=== PATIENT | male | born 1950 | race Caucasian/White ===

== ENCOUNTER 2020-10-09 11:23 | Inpatient (IN) | payer OTHER ==
[~2020-10-09] VITALS: Ht 172.7 cm; Wt 127.2 kg
[2020-10-09 11:51] LABS: BASOPHILS % (AUTO) 2 % (0-1); EOSINOPHILS % (AUTO) 2 % (1-7); LYMPHOCYTES % (AUTO) 31 % (22-44); MEAN CORPUSCULAR HEMOGLOBIN 30.2 pg (27.5-34.5); MEAN CORPUSCULAR HGB CONC 33.4 g/dL (33.2-36.2); MEAN PLATELET VOLUME 8.4 fL (7.4-10.4); MONOCYTES % (AUTO) 6 % (2-9); NEUTROPHILS % (AUTO) 60 % (42-75); PLATELET COUNT 156 x10^3/uL (130-400); RED BLOOD COUNT 5.77 x10^6/uL (4.38-5.82); RED CELL DISTRIBUTION WIDTH 17.5 % (9.4-14.8)
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
[2020-10-09 12:06] LABS: ALBUMIN 3.2 g/dL (3.4-5.0); ANION GAP 9 mmol/L (5-15); CALCIUM 8.1 mg/dL (8.5-10.1); CHLORIDE 110 mmol/L (98-107)
[2020-10-09 12:12] LABS: ALANINE AMINOTRANSFERASE 48 U/L (12-78); ALKALINE PHOSPHATASE 146 U/L (45-117); CREATININE 0.82 mg/dL (0.7-1.3); TROPONIN I < 0.015 ng/mL (0.000-0.045)
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
--- NOTE | 2020-10-09 13:05 | NUR ---
PT AWARE OF NPO STATUS, VERBALIZED UNDERSTANDING.
--- NOTE | 2020-10-09 13:16 | NUR ---
BEDSIDE REPORT AND TRANSFER OF CARE TO LARISA JAMES AT THIS TIME
[2020-10-09 13:40] LABS: AMPHETAMINE SCREEN, URINE Negative (Negative); BARBITURATE SCREEN, URINE Negative (Negative); BENZODIAZEPINE SCREEN, URINE Negative (Negative); CANNABINOID SCREEN, URINE Negative (Negative); COCAINE SCREEN, URINE Negative (Negative); METHADONE SCREEN, URINE Negative (Negative); OPIATE SCREEN, URINE Negative (Negative)
--- NOTE | 2020-10-09 13:56 | NUR ---
PT IN CT
--- NOTE | 2020-10-09 14:33 | NUR ---
PT UP AT BEDSIDE PRN TO USE URINAL. SR PER MONITOR. AUTO BP AND PULSE OX IN PLACE. RA SAT DECREASED 87%. PLACED BACK ON OXYGEN 2L NC. PT CONT TO NOT REMEMBER EVENTS EARLIER TODAY. CALL LIGHT IN PLACE. WAITING FOR TEST RESULTS.
--- NOTE | 2020-10-09 15:15 | NUR ---
DR MATIAS AT BEDSIDE TO RE-EVAL PT
[2020-10-09] MEDS ORDERED: ONDANSETRON 2MG/ML, 2ML IVPush PRN (16:00)
[2020-10-09] MEDS ORDERED: ACETAMINOPHEN 325 MG TABLET PO PRN (16:00)
[2020-10-09] MEDS ORDERED: LORazepam 2 MG/ML, 1ML IVPush PRN (16:00)
[2020-10-09] MEDS ORDERED: POLYETHYLENE GLYCOL 17 GM PACKET PO PRN (16:00)
[2020-10-09] MEDS ORDERED: ONDANSETRON ODT 4 MG PO PRN (16:00)
--- NOTE | 2020-10-09 16:05 | NUR ---
PTS DAUGHTER AT BEDSIDE. PT SR PER MONITOR. PT REQUESTING SIDERAIL DOWN R/T "HAVING TO USE THE URINAL FREQUENTLY. PT AND PTS DAUGHTER AWARE OF WAITING FOR ROOM ASSIGNMENT.
--- NOTE | 2020-10-09 18:22 | NUR ---
REPORT TO TARA JAMES. POC DISCUSSED.
--- NOTE | 2020-10-09 19:17 | NUR ---
REPORT TO KERA JAMES
--- NOTE | 2020-10-09 19:52 | NUR ---
Morro montoya in EDM - 10/09/20 at 2019 by TIM PT TAKEN TO CT SCAN WITH SPOUT TENDER, VIA WHEELCHAIR. PT TOLERATING WELL, REMAINS WITH PREVIOUS INJURY TO LEFT ELBOW AND SHOULDER. PT A&OX4.
--- NOTE | 2020-10-09 20:19 | NUR ---
PT TAKEN TO MRI SCAN WITH GRIEF COUNSELOR, VIA WHEELCHAIR. PT TOLERATING WELL, REMAINS WITH PREVIOUS INJURY TO LEFT ELBOW AND SHOULDER. PT A&OX4.
--- NOTE | 2020-10-09 21:25 | NUR ---
REPORT WAS GIVEN TO RAFAL JAMES FROM DAY SHIFT. CALLED TO VERIFY AND RN TOLD ME TO BRING PT UP. PT BACK FROM MRI, AND PACKAGED TO GO. PT TRANSFERRED TO FLOOR WITHOUT INCIDENT. PTS LEFT ARM REMAINS BANDAGED AND SPLINTED FOR BREAK AND WOUND.
[2020-10-09 21:30] VITALS: BP 131/98
[2020-10-09] MEDS: HYDROcodone/APAP 5/325 TABLET PO PRN (22:30)
[2020-10-09 22:51] LABS: MICROSCOPIC NOT IND
[2020-10-10 01:29] VITALS: BP 131/98
[2020-10-10 01:31] VITALS: BP 146/89
[2020-10-10 05:56] LABS: BASOPHILS % (AUTO) 0 % (0-1); EOSINOPHILS % (AUTO) 4 % (1-7); LYMPHOCYTES % (AUTO) 17 % (22-44); MEAN CORPUSCULAR HGB CONC 33.3 g/dL (33.2-36.2); MEAN PLATELET VOLUME 8.5 fL (7.4-10.4); MONOCYTES % (AUTO) 12 % (2-9); NEUTROPHILS % (AUTO) 68 % (42-75); PLATELET COUNT 159 x10^3/uL (130-400); RED BLOOD COUNT 5.95 x10^6/uL (4.38-5.82); RED CELL DISTRIBUTION WIDTH 17.2 % (9.4-14.8)
[2020-10-10 06:08] LABS: ALBUMIN 2.9 g/dL (3.4-5.0); ANION GAP 5 mmol/L (5-15); CALCIUM 8.5 mg/dL (8.5-10.1); CHLORIDE 108 mmol/L (98-107)
[2020-10-10 06:12] LABS: ALANINE AMINOTRANSFERASE 45 U/L (12-78); ALKALINE PHOSPHATASE 148 U/L (45-117); BILIRUBIN,TOTAL 1.2 mg/dL (0.2-1.0); CREATININE 0.69 mg/dL (0.7-1.3); TOTAL PROTEIN 7.1 g/dL (6.4-8.2)
[2020-10-10 07:01] VITALS: BP 158/102
[2020-10-10] MEDS: SENNA/DOCUSATE TABLET PO SCH (09:00)
[2020-10-10] MEDS: LEVETIRACETAM 500 MG in SODIUM CHLORIDE 0.9% 100 ML IV SCH ×2 (09:36→20:04)
[2020-10-10 12:02] VITALS: BP 137/85
[2020-10-10] MEDS ORDERED: FENTANYL PF 100 MCG/2ML ONE (13:51)
[2020-10-10] MEDS ORDERED: MIDAZOLAM 1 MG/ML, 5ML ONE (13:52)
[2020-10-10] MEDS: HYDROcodone/APAP 5/325 TABLET PO PRN (20:05)
[2020-10-10 20:15] VITALS: BP 147/96
[2020-10-11 01:55] VITALS: BP 154/101
[2020-10-11] MEDS ORDERED: LEVE500T53 PO (07:54)
[2020-10-11] MEDS: SENNA/DOCUSATE TABLET PO SCH (07:58)
[2020-10-11] MEDS: LEVETIRACETAM 500 MG in SODIUM CHLORIDE 0.9% 100 ML IV SCH (07:58)
[2020-10-11 08:18] VITALS: BP 144/90
[2020-10-11 13:23] VITALS: BP 120/80
== END 2020-10-11 15:13 | disposition home or self-care (01) | DRG 101 ==
LOC: ED 17:30 → EDIP 20:21 → 4WST 21:30
PROVIDERS: ADMIT Family Medicine; ATTEND Family Medicine
DX: G40.209 Localization-related (focal) (partial) symptomatic epilepsy and epileptic syndromes with complex partial seizures, not intractable, without status epilepticus (principal); S42.202A Unspecified fracture of upper end of left humerus, initial encounter for closed fracture; J96.11 Chronic respiratory failure with hypoxia; Z68.41 Body mass index [BMI] 40.0-44.9, adult; E66.9 Obesity, unspecified; F12.90 Cannabis use, unspecified, uncomplicated; G47.33 Obstructive sleep apnea (adult) (pediatric); G51.0 Bell's palsy; S00.83XA Contusion of other part of head, initial encounter; S51.012A Laceration without foreign body of left elbow, initial encounter; Z79.899 Other long term (current) drug therapy; Z91.19 Patient's noncompliance with other medical treatment and regimen
CPT/HCPCS: 36415; 70450; 70553; 80053; 80307; 80320; 81003; 83605; 84484; 85025; 93005; 95816; 95819; 99156; 99157; 99291; G0378; J1953; J2250; J3010; G0480